=== PATIENT | male | born 1985 | race Caucasian/White ===

== ENCOUNTER 2018-04-04 07:43 | Emergency (ER) | payer MEDICAID, OTHER ==
[~2018-04-04] VITALS: Ht 185.4 cm; Wt 85.9 kg
[2018-04-04 07:57] VITALS: BP 111/68
[2018-04-04] MEDS ORDERED: HYDROCODONE/ACETAMINOPHEN 5-325 MG TABLET PO ONE (08:45)
[2018-04-04] MEDS ORDERED: POVIDONE-IODINE 10% 15 ML SOLUTION UD ONE (08:48)
[2018-04-04] MEDS ORDERED: POVIDONE-IODINE 10% 15 ML SOLUTION UD TP ONE (09:00)
== END 2018-04-04 09:42 | disposition home or self-care (01) ==
LOC: EMS 07:43
DX: S60.121A Contusion of right index finger with damage to nail, initial encounter (principal); F17.210 Nicotine dependence, cigarettes, uncomplicated; W54.8XXA Other contact with dog, initial encounter; Y93.89 Activity, other specified; Y92.89 Other specified places as the place of occurrence of the external cause; Y99.8 Other external cause status
CPT/HCPCS: 11740; 99284